=== PATIENT | female | born 1980 | race Caucasian/White ===

== ENCOUNTER → 2017-08-30 | Outpatient (REF) | payer OTHER ==
[2017-08-30 16:32] LABS: ALBUMIN 3.9 GM/DL (3.2-5.2); ALBUMIN/GLOBULIN RATIO 1.08 (1.00-1.93); ALKALINE PHOSPHATASE 86 U/L (45-117); ALT/SGPT 23 U/L (12-78); ANION GAP 8 MEQ/L (8-16); AST/SGOT 15 U/L (7-37); BILIRUBIN,TOTAL 0.2 MG/DL (0.2-1.0); BLOOD UREA NITROGEN 8 MG/DL (7-18); CALCIUM LEVEL 8.8 MG/DL (8.5-10.1); CARBON DIOXIDE LEVEL 23 MEQ/L (21-32); CHLORIDE LEVEL 108 MEQ/L (98-107); CREATININE FOR GFR 0.55 MG/DL (0.55-1.30); GLOMERULAR FILTRATION RATE > 60.0 (>60); GLUCOSE, FASTING 81 MG/DL (70-100); POTASSIUM SERUM 4.2 MEQ/L (3.5-5.1); SODIUM LEVEL 139 MEQ/L (136-145); TOTAL PROTEIN 7.5 GM/DL (6.4-8.2)
[2017-09-05 00:06] LABS: % CD8 Pos Lymph 32.9 % (12.0-35.5); %CD4 Pos Lymphs 39.4 % (30.8-58.5); ABS Eosinophils 0.2 x10E3/uL (0.0-0.4); ABS Lymphs 2.4 x10E3/uL (0.7-3.1); ABS Monocytes 0.6 x10E3/uL (0.1-0.9); Abs CD4 Helper 946 /uL (359-1519); Abs CD8 Suppres 790 /uL (109-897); Eosinophils 2 % (Not Estab.); HCT 39.8 % (34.0-46.6); HGB 12.2 g/dL (11.1-15.9); HIV-1 RNA PCR QUANT 2 LC550285 <20 copies/mL (.); Immature Grans 0 % (Not Estab.); Lymphocytes 22 % (Not Estab.); MCH 24.1 pg (26.6-33.0); MCHC 30.7 g/dL (31.5-35.7); MCV 79 fL (79-97); Monocytes 5 % (Not Estab.); Neutrophils 71 % (Not Estab.); Platelets 279 x10E3/uL (150-379); RBC 5.07 x10E6/uL (3.77-5.28); RDW 17.2 % (12.3-15.4); WBC 11.3 x10E3/uL (3.4-10.8)
== END ==
LOC: M SFHCPLAZ 12:49
DX: B20 Human immunodeficiency virus [HIV] disease (principal)

== ENCOUNTER → 2017-12-24 | Outpatient (REF) | payer OTHER ==
[2017-12-24 12:51] LABS: AMORPHOUS SEDIMENT SMALL (NEGATIVE); APPEARANCE, URINE CLOUDY (CLEAR); BACTERIA, URINE AUTO 3+ (NEGATIVE); BILIRUBIN, URINE AUTO NEGATIVE (NEGATIVE); BLOOD, URINE BLOOD NEGATIVE (NEGATIVE); COLOR, URINE YELLOW (YELLOW); GLUCOSE, URINE (UA) AUTO NEGATIVE (NEGATIVE); KETONE, URINE AUTO NEGATIVE (NEGATIVE); LEUKOCYTE ESTERASE, URINE AUTO NEGATIVE (NEGATIVE); MUCUS, URINE SMALL (NEGATIVE); NITRITE, URINE AUTO NEGATIVE (NEGATIVE); PROTEIN, URINE AUTO NEGATIVE (NEGATIVE); RBC, URINE AUTO 1 /HPF (0-3); SPECIFIC GRAVITY URINE AUTO 1.017 (1.002-1.035); SQUAMOUS EPITHELIAL CELL UR AU 30 /HPF (0-6); UROBILINOGEN, URINE AUTO 0.2 mg/dL (0.0-2.0); WBC, URINE AUTO 1 /HPF (0-3)
[2017-12-24 14:05] LABS: CHLAMYDIA DNA AMPLIFICATION NEGATIVE (NEGATIVE); GC DNA AMPLIFICATION NEGATIVE (NEGATIVE)
[2017-12-24 22:12] LABS: ALBUMIN 3.6 GM/DL (3.2-5.2); ALKALINE PHOSPHATASE 75 U/L (45-117); ALT/SGPT 21 U/L (12-78); ANION GAP 8 MEQ/L (8-16); AST/SGOT 11 U/L (7-37); BILIRUBIN,TOTAL 0.4 MG/DL (0.2-1.0); BLOOD UREA NITROGEN 10 MG/DL (7-18); CALCIUM LEVEL 8.4 MG/DL (8.5-10.1); CARBON DIOXIDE LEVEL 23 MEQ/L (21-32); CHLORIDE LEVEL 107 MEQ/L (98-107); CREATININE FOR GFR 0.59 MG/DL (0.55-1.30); FREE T4 0.84 NG/DL (0.76-1.46); GLOMERULAR FILTRATION RATE > 60.0 (>60); GLUCOSE, FASTING 67 MG/DL (70-100); POTASSIUM SERUM 4.5 MEQ/L (3.5-5.1); SODIUM LEVEL 138 MEQ/L (136-145); THYROID STIMULATING HORMONE 0.824 uIU/ML (0.358-3.740); TOTAL PROTEIN 7.2 GM/DL (6.4-8.2); TRIGLYCERIDES LEVEL 122 MG/DL (<150)
[2017-12-24 22:51] LABS: ESTIMATED AVERAGE GLUCOSE 123 MG/DL (60-110); HEMOGLOBIN A1c 5.9 %
[2017-12-24 23:12] LABS: CHOLESTEROL LEVEL 187 MG/DL (<200); CHOLESTEROL RISK RATIO 4.155 (<5); HDL CHOLESTEROL 45 MG/DL (>40); LDL CHOLESTEROL 117.6 MG/DL (<100); NON-HDL-C 142 MG/DL
[2017-12-26 14:18] LABS: % CD8 Pos Lymph 32.4 % (12.0-35.5); %CD4 Pos Lymphs 40.2 % (30.8-58.5); ABS Eosinophils 0.2 x10E3/uL (0.0-0.4); ABS Lymphs 2.2 x10E3/uL (0.7-3.1); ABS Monocytes 0.7 x10E3/uL (0.1-0.9); ABS Neutophils 6.7 x10E3/uL (1.4-7.0); Abs CD4 Helper 884 /uL (359-1519); Abs CD8 Suppres 713 /uL (109-897); CD4/CD8 Ratio 1.24 (0.92-3.72); Eosinophils 2 % (Not Estab.); HCT 38.1 % (34.0-46.6); HGB 12.9 g/dL (11.1-15.9); HIV-1 RNA PCR QUANT 2 LC550285 <20 copies/mL (.); Imm ABS Grans 0.1 x10E3/uL (0.0-0.1); Immature Grans 1 % (Not Estab.); Lymphocytes 22 % (Not Estab.); MCH 26.8 pg (26.6-33.0); MCHC 33.9 g/dL (31.5-35.7); MCV 79 fL (79-97); Monocytes 7 % (Not Estab.); Neutrophils 68 % (Not Estab.); Platelets 250 x10E3/uL (150-379); RBC 4.81 x10E6/uL (3.77-5.28); RDW 15.9 % (12.3-15.4)
== END ==
LOC: M SFHCPLAZ 09:29
DX: B20 Human immunodeficiency virus [HIV] disease (principal); E66.01 Morbid (severe) obesity due to excess calories

== ENCOUNTER → 2018-04-29 | Outpatient (REF) | payer MEDICAID ==
[2018-04-29 13:08] LABS: ALBUMIN 3.8 GM/DL (3.2-5.2); ALT/SGPT 21 U/L (12-78); BILIRUBIN,TOTAL 0.2 MG/DL (0.2-1.0); BLOOD UREA NITROGEN 7 MG/DL (7-18); CALCIUM LEVEL 9.2 MG/DL (8.5-10.1); CARBON DIOXIDE LEVEL 27 MEQ/L (21-32); CHLORIDE LEVEL 103 MEQ/L (98-107); CREATININE FOR GFR 0.57 MG/DL (0.55-1.30); GLOMERULAR FILTRATION RATE > 60.0 (>58); GLUCOSE, FASTING 68 MG/DL (70-100); POTASSIUM SERUM 4.1 MEQ/L (3.5-5.1); SODIUM LEVEL 138 MEQ/L (136-145); TOTAL PROTEIN 7.1 GM/DL (6.4-8.2)
[2018-04-29 13:36] LABS: HEPATITIS B SURFACE ANTIBODY POSITIVE (POSITIVE); HEPATITIS B SURFACE ANTIGEN NEGATIVE (NEGATIVE)
[2018-04-29 13:53] LABS: HEPATITIS C VIRUS ABY INDEX 0.1 INDEX (<0.8)
[2018-04-30 08:06] LABS: HEPATITIS A IgG TOTAL Positive (Negative)
[2018-05-03 00:10] LABS: %CD4 Pos Lymphs 40.1 % (30.8-58.5); ABS Eosinophils 0.2 x10E3/uL (0.0-0.4); ABS Lymphs 2.2 x10E3/uL (0.7-3.1); ABS Monocytes 0.8 x10E3/uL (0.1-0.9); ABS Neutophils 7.7 x10E3/uL (1.4-7.0); Abs CD4 Helper 882 /uL (359-1519); Abs CD8 Suppres 682 /uL (109-897); CD4/CD8 Ratio 1.29 (0.92-3.72); Eosinophils 2 % (Not Estab.); HCT 39.4 % (34.0-46.6); HGB 12.9 g/dL (11.1-15.9); HIV-1 RNA PCR QUANT 2 LC550285 <20 copies/mL (.); Imm ABS Grans 0.1 x10E3/uL (0.0-0.1); Immature Grans 1 % (Not Estab.); Lymphocytes 20 % (Not Estab.); MCH 26.3 pg (26.6-33.0); MCHC 32.7 g/dL (31.5-35.7); MCV 80 fL (79-97); Monocytes 7 % (Not Estab.); Neutrophils 70 % (Not Estab.); Platelets 290 x10E3/uL (150-379); RBC 4.91 x10E6/uL (3.77-5.28); RDW 14.7 % (12.3-15.4); WBC 11.1 x10E3/uL (3.4-10.8)
== END ==
LOC: M SFHCPLAZ 10:50
PROVIDERS: ATTEND Internal Medicine Infectious Disease
DX: B20 Human immunodeficiency virus [HIV] disease (principal)

== ENCOUNTER → 2018-10-31 | Outpatient (REF) | payer MEDICAID, OTHER ==
[2018-10-31 13:46] LABS: APPEARANCE, URINE HAZY (CLEAR); BACTERIA, URINE AUTO NEGATIVE (NEGATIVE); BILIRUBIN, URINE AUTO NEGATIVE (NEGATIVE); BLOOD, URINE BLOOD NEGATIVE (NEGATIVE); COLOR, URINE YELLOW (YELLOW); GLUCOSE, URINE (UA) AUTO NEGATIVE (NEGATIVE); KETONE, URINE AUTO TRACE mg/dL (NEGATIVE); LEUKOCYTE ESTERASE, URINE AUTO NEGATIVE (NEGATIVE); MUCUS, URINE SMALL (NEGATIVE); NITRITE, URINE AUTO NEGATIVE (NEGATIVE); PROTEIN, URINE AUTO NEGATIVE (NEGATIVE); RBC, URINE AUTO 3 /HPF (0-3); SPECIFIC GRAVITY URINE AUTO 1.025 (1.002-1.035); SQUAMOUS EPITHELIAL CELL UR AU 6 /HPF (0-6); UROBILINOGEN, URINE AUTO 0.2 mg/dL (0.0-2.0); WBC, URINE AUTO 5 /HPF (0-3)
[2018-10-31 13:48] LABS: ALBUMIN 3.5 GM/DL (3.2-5.2); ALT/SGPT 16 U/L (12-78); BILIRUBIN,TOTAL 0.2 MG/DL (0.2-1.0); BLOOD UREA NITROGEN 11 MG/DL (7-18); CALCIUM LEVEL 8.5 MG/DL (8.5-10.1); CARBON DIOXIDE LEVEL 24 MEQ/L (21-32); CHLORIDE LEVEL 109 MEQ/L (98-107); CHOLESTEROL LEVEL 167 MG/DL (<200); CHOLESTEROL RISK RATIO 3.795 (<5); CREATININE FOR GFR 0.59 MG/DL (0.55-1.30); GLOMERULAR FILTRATION RATE > 60.0 (>58); GLUCOSE, FASTING 90 MG/DL (70-100); HDL CHOLESTEROL 44 MG/DL (>40); LDL CHOLESTEROL 101 MG/DL (<100); NON-HDL-C 123 MG/DL; POTASSIUM SERUM 4.2 MEQ/L (3.5-5.1); SODIUM LEVEL 139 MEQ/L (136-145); TOTAL PROTEIN 6.9 GM/DL (6.4-8.2); TRIGLYCERIDES LEVEL 110 MG/DL (<150)
[2018-10-31 13:56] LABS: HEMOGLOBIN A1c 5.9 %
[2018-10-31 16:10] LABS: CHLAMYDIA DNA AMPLIFICATION NEGATIVE (NEGATIVE); GC DNA AMPLIFICATION NEGATIVE (NEGATIVE)
[2018-11-05 00:06] LABS: % CD8 Pos Lymph 32.7 % (12.0-35.5); %CD4 Pos Lymphs 39.8 % (30.8-58.5); ABS Basophils 0.1 x10E3/uL (0.0-0.2); ABS Eosinophils 1.8 x10E3/uL (0.0-0.4); ABS Lymphs 2.5 x10E3/uL (0.7-3.1); ABS Monocytes 0.6 x10E3/uL (0.1-0.9); ABS Neutophils 6.6 x10E3/uL (1.4-7.0); Abs CD4 Helper 995 /uL (359-1519); Abs CD8 Suppres 818 /uL (109-897); CD4/CD8 Ratio 1.22 (0.92-3.72); Eosinophils 15 % (Not Estab.); HCT 38.7 % (34.0-46.6); HGB 12.5 g/dL (11.1-15.9); HIV-1 RNA PCR QUANT 2 LC550285 <20 copies/mL (.); Imm ABS Grans 0.1 x10E3/uL (0.0-0.1); Immature Grans 1 % (Not Estab.); Lymphocytes 22 % (Not Estab.); MCH 26.2 pg (26.6-33.0); MCHC 32.3 g/dL (31.5-35.7); MCV 81 fL (79-97); Monocytes 6 % (Not Estab.); Neutrophils 56 % (Not Estab.); Platelets 241 x10E3/uL (150-450); RBC 4.78 x10E6/uL (3.77-5.28); RDW 16.2 % (12.3-15.4); WBC 11.7 x10E3/uL (3.4-10.8)
== END ==
LOC: M SFHCPLAZ 11:40
PROVIDERS: ATTEND Internal Medicine Infectious Disease
DX: B20 Human immunodeficiency virus [HIV] disease (principal); R73.02 Impaired glucose tolerance (oral)

== ENCOUNTER → 2019-05-08 | Outpatient (REF) | payer OTHER ==
[2019-05-08 16:07] LABS: APPEARANCE, URINE HAZY (CLEAR); BACTERIA, URINE AUTO NEGATIVE (NEGATIVE); BILIRUBIN, URINE AUTO NEGATIVE (NEGATIVE); BLOOD, URINE BLOOD 1+ (NEGATIVE); COLOR, URINE YELLOW (YELLOW); GLUCOSE, URINE (UA) AUTO NEGATIVE (NEGATIVE); KETONE, URINE AUTO TRACE mg/dL (NEGATIVE); LEUKOCYTE ESTERASE, URINE AUTO NEGATIVE (NEGATIVE); MUCUS, URINE SMALL (NEGATIVE); NITRITE, URINE AUTO NEGATIVE (NEGATIVE); PROTEIN, URINE AUTO NEGATIVE (NEGATIVE); RBC, URINE AUTO 4 /HPF (0-3); SPECIFIC GRAVITY URINE AUTO 1.026 (1.002-1.035); SQUAMOUS EPITHELIAL CELL UR AU 2 /HPF (0-6); WBC, URINE AUTO 1 /HPF (0-3)
[2019-05-08 16:24] LABS: HEMOGLOBIN A1c 6.2 %
[2019-05-08 16:42] LABS: ALBUMIN 3.7 GM/DL (3.2-5.2); ALT/SGPT 22 U/L (12-78); BILIRUBIN,TOTAL 0.2 MG/DL (0.2-1.0); BLOOD UREA NITROGEN 10 MG/DL (7-18); CALCIUM LEVEL 8.5 MG/DL (8.5-10.1); CARBON DIOXIDE LEVEL 23 MEQ/L (21-32); CHLORIDE LEVEL 110 MEQ/L (98-107); CHOLESTEROL LEVEL 190 MG/DL (<200); CHOLESTEROL RISK RATIO 4.634 (<5); GLOMERULAR FILTRATION RATE > 60.0 (>58); GLUCOSE, FASTING 82 MG/DL (70-100); HDL CHOLESTEROL 41 MG/DL (>40); LDL CHOLESTEROL 123 MG/DL (<100); NON-HDL-C 149 MG/DL; POTASSIUM SERUM 4.3 MEQ/L (3.5-5.1); SODIUM LEVEL 139 MEQ/L (136-145); TOTAL PROTEIN 7.2 GM/DL (6.4-8.2); TRIGLYCERIDES LEVEL 128 MG/DL (<150)
[2019-05-08 17:41] LABS: CHLAMYDIA DNA AMPLIFICATION NEGATIVE (NEGATIVE); GC DNA AMPLIFICATION NEGATIVE (NEGATIVE)
== END ==
LOC: M SFHCPLAZ 13:23
PROVIDERS: ATTEND Internal Medicine Infectious Disease
DX: B20 Human immunodeficiency virus [HIV] disease (principal); R73.02 Impaired glucose tolerance (oral)

== ENCOUNTER → 2020-02-26 | Outpatient (REF) | payer OTHER ==
[2020-02-26 13:53] LABS: CREATININE, URINE 93.4 MG/DL; MALB URINE SIEMENS 15.2 MG/L; MAU/CREAT RATIO 16.2 MCG/MG (0.0-30.0)
[2020-02-26 14:04] LABS: HEMOGLOBIN A1c 6.3 %
[2020-02-26 14:57] LABS: ALBUMIN 3.7 GM/DL (3.2-5.2); ALT/SGPT 24 U/L (12-78); BILIRUBIN,TOTAL 0.2 MG/DL (0.2-1.0); BLOOD UREA NITROGEN 10 MG/DL (7-18); CALCIUM LEVEL 8.9 MG/DL (8.5-10.1); CARBON DIOXIDE LEVEL 24 MEQ/L (21-32); CHLORIDE LEVEL 109 MEQ/L (98-107); CREATININE FOR GFR 0.64 MG/DL (0.55-1.30); GLOMERULAR FILTRATION RATE > 60.0 (>58); GLUCOSE, FASTING 83 MG/DL (70-100); POTASSIUM SERUM 4.6 MEQ/L (3.5-5.1); SODIUM LEVEL 140 MEQ/L (136-145); TOTAL PROTEIN 7.3 GM/DL (6.4-8.2)
[2020-03-01 21:06] LABS: % CD8 Pos Lymph 31.1 % (12.0-35.5); %CD4 Pos Lymphs 44.3 % (30.8-58.5); ABS Basophils 0.1 x10E3/uL (0.0-0.2); ABS Eosinophils 0.3 x10E3/uL (0.0-0.4); ABS Monocytes 0.7 x10E3/uL (0.1-0.9); ABS Neutophils 6.5 x10E3/uL (1.4-7.0); Abs CD4 Helper 886 /uL (359-1519); Abs CD8 Suppres 622 /uL (109-897); CD4/CD8 Ratio 1.42 (0.92-3.72); Eosinophils 4 % (Not Estab.); HCT 39.2 % (34.0-46.6); HGB 12.6 g/dL (11.1-15.9); HIV-1 RNA PCR QUANT 2 LC550285 <20 copies/mL (.); Imm ABS Grans 0.1 x10E3/uL (0.0-0.1); Immature Grans 1 % (Not Estab.); Lymphocytes 20 % (Not Estab.); MCH 25.9 pg (26.6-33.0); MCHC 32.1 g/dL (31.5-35.7); MCV 81 fL (79-97); Monocytes 7 % (Not Estab.); Neutrophils 67 % (Not Estab.); Platelets 281 x10E3/uL (150-450); RBC 4.86 x10E6/uL (3.77-5.28); RDW 13.7 % (11.7-15.4); WBC 9.6 x10E3/uL (3.4-10.8)
== END ==
LOC: M SFHCPLAZ 11:33
PROVIDERS: ATTEND Internal Medicine Infectious Disease
DX: R73.02 Impaired glucose tolerance (oral) (principal); B20 Human immunodeficiency virus [HIV] disease

== ENCOUNTER → 2020-09-23 | Outpatient (REF) | payer OTHER ==
[2020-09-23 14:03] LABS: ALBUMIN 3.5 GM/DL (3.2-5.2); ALT/SGPT 28 U/L (12-78); BILIRUBIN,TOTAL 0.2 MG/DL (0.2-1.0); BLOOD UREA NITROGEN 9 MG/DL (7-18); CALCIUM LEVEL 8.7 MG/DL (8.5-10.1); CARBON DIOXIDE LEVEL 22 MEQ/L (21-32); CHLORIDE LEVEL 109 MEQ/L (98-107); CHOLESTEROL LEVEL 182 MG/DL (<200); CHOLESTEROL RISK RATIO 4.439 (<5); CREATININE FOR GFR 0.51 MG/DL (0.55-1.30); GLOMERULAR FILTRATION RATE > 60.0 (>58); GLUCOSE, FASTING 120 MG/DL (70-100); HDL CHOLESTEROL 41 MG/DL (>40); LDL CHOLESTEROL 117 MG/DL (<100); NON-HDL-C 141 MG/DL; POTASSIUM SERUM 4.4 MEQ/L (3.5-5.1); SODIUM LEVEL 138 MEQ/L (136-145); TOTAL PROTEIN 7.2 GM/DL (6.4-8.2); TRIGLYCERIDES LEVEL 121 MG/DL (<150)
[2020-09-23 17:58] LABS: HEMOGLOBIN A1c 7.1 %
== END ==
LOC: M SFHCPLAZ 11:09
PROVIDERS: ATTEND Internal Medicine Infectious Disease
DX: B20 Human immunodeficiency virus [HIV] disease (principal); R73.02 Impaired glucose tolerance (oral)

== ENCOUNTER → 2021-05-17 | Outpatient (CLI) | payer OTHER | LOC: M PLALAB 14:45 | PROVIDERS: ATTEND Internal Medicine Infectious Disease | DX: B20 Human immunodeficiency virus [HIV] disease (principal); R73.02 Impaired glucose tolerance (oral) ==

== ENCOUNTER → 2022-05-09 | Outpatient (CLI) | payer OTHER ==
[2022-05-09 15:33] LABS: APPEARANCE, URINE MANUAL CLEAR (CLEAR); COLOR, URINE MANUAL YELLOW (YELLOW)
[2022-05-09 15:34] LABS: BILIRUBIN, URINE MANUAL NEGATIVE (NEGATIVE); BLOOD URINE MANUAL TRACE (NEGATIVE); GLUCOSE, URINE (UA) MANUAL NEGATIVE (NEGATIVE); KETONE, URINE MANUAL NEGATIVE (NEGATIVE); LEUKOCYTE ESTERASE, URINE MAN NEGATIVE (NEGATIVE); NITRITE, URINE MANUAL NEGATIVE (NEGATIVE); PROTEIN, URINE MANUAL NEGATIVE (NEGATIVE); SPECIFIC GRAVITY,URINE MANUAL 1.015 (1.002-1.035); UROBILINOGEN, URINE MANUAL NORMAL (NORMAL)
[2022-05-09 15:51] LABS: RBC, URINE 0-1 /hpf (0-3)
[2022-05-09 15:52] LABS: BACTERIA, URINE LARGE AMOUNT; HYALINE CAST, URINE NONE SEEN /lpf (0-1); SQUAMOUS EPITHELIAL CELL URINE MOD AMOUNT /hpf (SMALL AMT)
[2022-05-09 16:08] LABS: ALBUMIN 3.8 G/DL (3.2-5.2); ALKALINE PHOSPHATASE 76 U/L (46-116); ALT/SGPT 21 U/L (7.0-40); AST/SGOT 17 U/L (<34); BILIRUBIN,TOTAL 0.2 MG/DL (0.3-1.2); BLOOD UREA NITROGEN 13 MG/DL (9-23); CALCIUM LEVEL 9.1 MG/DL (8.5-10.1); CARBON DIOXIDE LEVEL 24 MMOL/L (20-31); CHLORIDE LEVEL 107 MMOL/L (98-107); CHOLESTEROL LEVEL 185 MG/DL (<200); CHOLESTEROL RISK RATIO 4.03 (<5); CREATININE FOR GFR 0.46 MG/DL (0.55-1.30); GLOMERULAR FILTRATION RATE > 60.0 (>58); GLUCOSE, FASTING 90 MG/DL (60-100); HDL CHOLESTEROL 45.9 MG/DL (>40); LDL CHOLESTEROL 112.7 MG/DL (<100); NON-HDL-C 139 MG/DL; POTASSIUM SERUM 4.5 MMOL/L (3.5-5.1); SODIUM LEVEL 136 MMOL/L (136-145); TOTAL PROTEIN 7.1 G/DL (5.7-8.2); TRIGLYCERIDES LEVEL 132 MG/DL (<150)
[2022-05-09 17:15] LABS: GC DNA AMPLIFICATION NEGATIVE (NEGATIVE)
== END ==
LOC: M PLALAB 12:23
PROVIDERS: ATTEND Internal Medicine Infectious Disease
DX: B20 Human immunodeficiency virus [HIV] disease (principal); R73.02 Impaired glucose tolerance (oral)

== ENCOUNTER → 2023-07-05 | Outpatient (CLI) | payer OTHER ==
[2023-07-05 16:29] LABS: ALKALINE PHOSPHATASE 74 U/L (46-116); ALT/SGPT 47 U/L (7.0-40); AST/SGOT 19 U/L (<34); BILIRUBIN,TOTAL 0.2 MG/DL (0.3-1.2); BLOOD UREA NITROGEN 12 MG/DL (9-23); CALCIUM LEVEL 9.6 MG/DL (8.5-10.1); CARBON DIOXIDE LEVEL 26 MMOL/L (20-31); CHLORIDE LEVEL 106 MMOL/L (98-107); CREATININE FOR GFR 0.55 MG/DL (0.55-1.30); GLOMERULAR FILTRATION RATE > 60.0 (>58); GLUCOSE, FASTING 96 MG/DL (60-100); POTASSIUM SERUM 4.5 MMOL/L (3.5-5.1); SODIUM LEVEL 137 MMOL/L (136-145); TOTAL PROTEIN 7.1 G/DL (5.7-8.2)
[2023-07-05 17:10] LABS: HEMOGLOBIN A1c 6.7 % (4.0-6.0)
== END ==
LOC: M PLALAB 14:07
PROVIDERS: ATTEND Internal Medicine Infectious Disease
DX: B20 Human immunodeficiency virus [HIV] disease (principal)

== ENCOUNTER → 2024-01-03 | Outpatient (CLI) | payer OTHER ==
[2024-01-03 16:30] LABS: ALKALINE PHOSPHATASE 87 U/L (46-116); ALT/SGPT 46 U/L (7.0-40); AST/SGOT 20 U/L (<34); BILIRUBIN,TOTAL 0.4 MG/DL (0.3-1.2); BLOOD UREA NITROGEN 8 MG/DL (9-23); CALCIUM LEVEL 9.1 MG/DL (8.5-10.1); CARBON DIOXIDE LEVEL 23 MMOL/L (20-31); CHLORIDE LEVEL 106 MMOL/L (98-107); CHOLESTEROL LEVEL 190 MG/DL (<200); CHOLESTEROL RISK RATIO 4.18 (<5); CREATININE FOR GFR 0.52 MG/DL (0.55-1.30); GLOMERULAR FILTRATION RATE > 60.0 (>58); GLUCOSE, FASTING 89 MG/DL (60-100); HDL CHOLESTEROL 45.4 MG/DL (>40); LDL CHOLESTEROL 120.2 MG/DL (<100); NON-HDL-C 144.6 MG/DL; POTASSIUM SERUM 4.2 MMOL/L (3.5-5.1); SODIUM LEVEL 134 MMOL/L (136-145); TOTAL PROTEIN 7.4 G/DL (5.7-8.2); TRIGLYCERIDES LEVEL 122 MG/DL (<150)
[2024-01-04 12:18] LABS: % CD4+ LYMPHS 44.1 % (30.8-58.5); ABSOLUTE CD4 HELPER 1235 /uL (359-1519); BASOPHILS 1 % (Not Estab.); BASOPHILS ABSOLUTE 0.1 x10E3/uL (0.0-0.2); EOSINOPHILS 2 % (Not Estab.); EOSINOPHILS ABSOLUTE 0.3 x10E3/uL (0.0-0.4); HCT 40.4 % (34.0-46.6); HGB 13.1 g/dL (11.1-15.9); LYMPHOCYTES 22 % (Not Estab.); LYMPHOCYTES ABSOLUTE 2.8 x10E3/uL (0.7-3.1); MCH 25.4 pg (26.6-33.0); MCHC 32.4 g/dL (31.5-35.7); MCV 78 fL (79-97); MONOCYTES 6 % (Not Estab.); MONOCYTES ABSOLUTE 0.8 x10E3/uL (0.1-0.9); NEUTROPHILS 68 % (Not Estab.); NEUTROPHILS ABSOLUTE 8.8 x10E3/uL (1.4-7.0); PLT 291 x10E3/uL (150-450); RBC 5.15 x10E6/uL (3.77-5.28); RDW 14.8 % (11.7-15.4); WBC 12.8 x10E3/uL (3.4-10.8)
== END ==
LOC: M PLALAB 14:04
PROVIDERS: ATTEND Internal Medicine Infectious Disease
DX: B20 Human immunodeficiency virus [HIV] disease (principal); E11.9 Type 2 diabetes mellitus without complications

== ENCOUNTER → 2025-01-01 | Outpatient (CLI) | payer OTHER ==
[2025-01-01 16:42] LABS: MALB URINE SIEMENS 5.0 MG/L
[2025-01-01 16:43] LABS: CREATININE, URINE 49.0 MG/DL; MAU/CREAT RATIO 10.2 MCG/MG (0.0-30.0)
[2025-01-01 16:44] LABS: ALT/SGPT 54 U/L (7.0-40); AST/SGOT 31 U/L (<34); CALCIUM LEVEL 9.1 MG/DL (8.5-10.1); CARBON DIOXIDE LEVEL 22 MMOL/L (20-31); CHLORIDE LEVEL 109 MMOL/L (98-107); CREATININE FOR GFR 0.50 MG/DL (0.55-1.30); FREE T4 1.05 NG/DL (0.89-1.76); GLOMERULAR FILTRATION RATE > 90.0 (>58); POTASSIUM SERUM 4.5 MMOL/L (3.5-5.1); SODIUM LEVEL 135 MMOL/L (136-145)
[2025-01-01 16:59] LABS: ESTIMATED AVERAGE GLUCOSE 177.0 MG/DL (60-110)
[2025-01-01 17:39] LABS: GC DNA AMPLIFICATION NEGATIVE (NEGATIVE)
== END ==
LOC: M PLALAB 13:45
PROVIDERS: ATTEND Internal Medicine Infectious Disease
DX: B20 Human immunodeficiency virus [HIV] disease (principal); E66.01 Morbid (severe) obesity due to excess calories; E11.9 Type 2 diabetes mellitus without complications